=== PATIENT | female | born 1945 | race Caucasian/White ===

== ENCOUNTER 2018-03-25 22:01 | Emergency (ER) | payer MEDICARE, MEDICAID ==
[~2018-03-25] VITALS: Ht 147.3 cm; Wt 81.6 kg
[~2018-03-25 22:01] MED LIST: AMLO5TAB13 PO; BENA10TA47; CYCL1TAB18; GABA300C10 PO; LEVO100T83 PO; MET25T; OXYC325T14 PO; PANTPAK; PREMARIN; SIMV80TA73; TEMA15CA91; [UNRECOGNIZED DRUG - OTHER] PO
[2018-03-25 22:55] LABS: Basophils # (auto) 0.1 uL; Basophils % (auto) 0.7 % (0.0-2.0); Eosinophils # (auto) 0.1 uL; Hemoglobin 12.4 g/dL (12.2-16.2); Lymphocytes # (auto) 1.9 uL; Monocytes # (auto) 0.5 uL; Neutrophils # (auto) 6.1 uL; Nucleated Red Blood Cells % 0.1 %
[2018-03-25 22:56] LABS: Eosinophils % (auto) 0.7 % (0.0-7.0); Hematocrit 38.5 % (36.0-46.0); Lymphocytes % (auto) 21.7 % (10.0-50.0); Mean Corpuscular Hemoglobin 26.7 pg (28.0-32.0); Mean Corpuscular Hgb Conc. 32.2 g/dL (32.0-36.0); Monocytes % (auto) 5.7 % (0.0-12.0); Neutrophils % (auto) 71.2 % (37.0-80.0); Platelet Count (auto) 276 10^3/uL (140-450); Red Blood Cells 4.64 10^6/uL (4.0-5.20); Red Cell Distribution Width 15.5 % (11.8-14.3); White Blood Cell 8.6 10^3/uL (4.4-10.8)
[2018-03-25 23:06] LABS: INR 0.93 (0.9-1.15); Partial Thromboplastin Time 25.9 sec (23.78-33.04)
[2018-03-25 23:10] LABS: Albumin 3.3 g/dL (3.4-5.0); BUN/Creatinine Ratio 10.1; Calcium 8.5 mg/dL (8.5-10.1); Potassium 3.3 mmol/L (3.5-5.1)
[2018-03-25 23:13] LABS: Bilirubin, Total 0.4 mg/dL (0.2-1.0); Total Protein 7.5 g/dL (6.4-8.2)
[2018-03-25 23:16] LABS: Magnesium 1.9 mg/dL (1.6-2.6)
[2018-03-25] MEDS ORDERED: OXYCODONE W/ ACETAMINOPHEN 5/325MG TABLET PO ONE (23:45)
[2018-03-26] MEDS ORDERED: KETOROLAC TROMETH 60MG/2ML VIAL IM ONE (02:30)
[2018-03-26 02:58] VITALS: BP 154/94
== END 2018-03-26 03:15 | disposition home or self-care (01) ==
LOC: EDBD 22:01 → ER 22:10
DX: G89.4 Chronic pain syndrome (principal); J44.9 Chronic obstructive pulmonary disease, unspecified; E11.9 Type 2 diabetes mellitus without complications; I10 Essential (primary) hypertension; Z88.1 Allergy status to other antibiotic agents; Z88.6 Allergy status to analgesic agent; Z91.041 Radiographic dye allergy status; Z79.899 Other long term (current) drug therapy
CPT/HCPCS: 36415; 80053; 83735; 83880; 84484; 85025; 85379; 85610; 85730; 93005; 96372; 99285; J1885